=== PATIENT | female | born 1960 | race Caucasian/White ===

== ENCOUNTER 2019-05-20 12:44 | Observation (INO) | payer OTHER ==
[~2019-05-20] VITALS: Ht 154.9 cm; Wt 80.7 kg
[2019-05-20 12:44] VITALS: BP 144/77
--- NOTE | 2019-05-20 12:44 | NUR ---
Pt biba and placed in bed 1.
--- NOTE | 2019-05-20 13:02 | NUR ---
58 Y/O F BIBA FROM [facility] [employer]. PT STATES SHE BEGAN TO FEEL FAINT AND FELL TO THE GROUND. PT DENIES PREVIOUS HX OF SEIZURES/FAINTING. PT STATES SHE HAS A MILD HEADACHE 3/10 PAIN. PT POSITIONED FOR COMFORT, IV RUNNING AT 1000 ML NS, IV 20 G LT HAND. ALLERGIES: ASPIRIN
[2019-05-20] MEDS ORDERED: NACL 0.9% 500 ML IV SCH (13:31)
[2019-05-20 14:28] LABS: BASOPHILS # (AUTO) 0.1 K/uL (0.00-0.22); BASOPHILS % (AUTO) 0.7 % (0.0-2.0); EOSINOPHILS # (AUTO) 0.2 K/uL (0-0.4); EOSINOPHILS % (AUTO) 2.7 % (0.0-4.0); HEMATOCRIT 41.6 % (36-48); HEMOGLOBIN 13.7 g/dL (12.0-16.0); LYMPHOCYTES # (AUTO) 1.8 K/uL (2.5-16.5); LYMPHOCYTES % (AUTO) 23.3 % (20.5-51.1); MEAN CORPUSCULAR HEMOGLOBIN 29 pg (27-31); MEAN CORPUSCULAR HGB CONC 33 g/dL (33-37); MEAN CORPUSCULAR VOLUME 89.4 fL (80-94); MONOCYTES # (AUTO) 0.6 K/uL (0.8-1.0); MONOCYTES % (AUTO) 7.5 % (1.7-9.3); NEUTROPHILS % (AUTO) 65.8 % (42.2-75.2); PLATELET COUNT (AUTO) 209 K/uL (140-450); RED BLOOD CELL COUNT(AUTO) 4.66 MIL/uL (4.20-5.40); RED CELL DISTRIBUTION WIDTH 13.8 % (11.6-13.7); WHITE BLOOD COUNT (AUTO) 7.7 K/uL (4.8-10.8)
--- NOTE | 2019-05-20 14:28 | NUR ---
URINE COLLECTED FROM PT, GIVEN TO LAB.
[2019-05-20 14:50] LABS: APPEARANCE,URINE CLEAR (CLEAR); BILIRUBIN,URINE NEGATIVE (NEGATIVE); BLOOD, URINE NEGATIVE (NEGATIVE); COLOR,URINE YELLOW (YELLOW); LEUKOCYTE ESTERASE ,URINE NEGATIVE (NEGATIVE); NITRITE, URINE NEGATIVE (NEGATIVE); PH,URINE 5.5 (5.0-9.0); UGLUCOSE NEGATIVE (NEGATIVE)
[2019-05-20 15:00] LABS: ANION GAP 13.4 (8-16); CARBON DIOXIDE 26.5 mmol/L (21-32); POTASSIUM 3.9 mmol/L (3.5-5.1); PROTHROMBIN TIME 9.8 secs (10.8-13.4); TOTAL BILIRUBIN 0.4 mg/dL (0.0-1.0)
[2019-05-20] MEDS ORDERED: CLOPIDOGREL 75 MG TAB PO ONE (15:20)
[2019-05-20 16:07] LABS: ALBUMIN 3.7 g/dL (3.4-5.0); CREATININE 0.8 mg/dL (0.6-1.3)
--- NOTE | 2019-05-20 16:07 | NUR ---
PT AMBULATED TO RESTROOM WITHOUT DIFFICULTY.
[2019-05-20] MEDS ORDERED: ACETAMINOPHEN 325 MG TAB PO PRN (17:00)
[2019-05-20] MEDS ORDERED: NITROGLYCERIN 0.4 MG TAB SL PRN (17:00)
[2019-05-20] MEDS ORDERED: MORPHINE SULFATE 2 MG/ML SYR IVP PRN (17:00)
[2019-05-20] MEDS ORDERED: ZOLPIDEM 5 MG TAB PO PRN (17:00)
--- NOTE | 2019-05-20 18:00 | NUR ---
Patient will be admitted to care of DR PERKINS . Admited to TELE. Will go to room 121A. Belongings list completed. Report to BESS GUERIN.
--- NOTE | 2019-05-20 18:15 | NUR ---
RECEIVED REPORT FROM ED NURSE, PT IS AWAKE AND ALERT, AMBULATORY AND ABLE TO MAKE NEEDS KNOWN. PT IS ON ROOM AIR, SKIN INTACT. VS UPON ADMISSION: BP 130/82, HR 70, RR 21, TEMP 98.1, O2 97%.
--- NOTE | 2019-05-20 19:15 | NUR ---
ENDORSED PT TO PRESALES ENGINEER NURSE IN STABLE CONDITION.
--- NOTE | 2019-05-20 19:16 | NUR ---
RECEIVED PT FROM DAY SHIFT NURSETRUONG. NO SOB OR ANY RESPIRATORY DISTRESS NOTED. SKIN INTACT, WARM AND DRY TO TOUCH. IV SITE ON RFA 20G, PATENT, INTACT, AND ASYMPTOMATIC. ALL SAFETY MEASUREMENT ARE MET. BOARD UPDATED, BED IN LOW POSITION, CALL LIGHT WITHIN REACH.
[2019-05-20 20:00] VITALS: BP 122/70
--- NOTE | 2019-05-20 20:01 | NUR ---
VS CHECKED, WITHIN NORMAL RANGE. WILL CONTINUE TO MONITOR.
[2019-05-20] MEDS: NACL 0.9% 1,000 ML IV SCH (21:00)
--- NOTE | 2019-05-20 22:00 | NUR ---
PT LAYING ON BED. NO ACUTE DISTRESS NOTED. BED IN LOW POSITION, CALL LIGHT WITHIN REACH .
[2019-05-20 22:14] LABS: BARBITURATE, URINE NEGATIVE ng/ml (NEG <=200); BENZODIAZEPINE, URINE NEGATIVE ng/mL (NEG <=200); CANNABINOID, URINE NEGATIVE ng/mL (NEG <=50); COCAINE, URINE NEGATIVE ng/mL (NEG <=300); OPIATE, URINE NEGATIVE ng/mL (NEG <=2000); PHENCYCLIDINE SCREEN,URINE NEGATIVE ng/mL (NEG <=25)
[2019-05-21] VITALS: BP 118/64
--- NOTE | 2019-05-21 00:05 | NUR ---
VS CHECKED, WITHIN PT'S BASELINE. WILL CONTINUE TO MONITOR.
--- NOTE | 2019-05-21 02:25 | NUR ---
PT SLEEPING IN BED. NO ACUTE DISTRESS NOTED.
[2019-05-21 04:00] VITALS: BP 120/70
--- NOTE | 2019-05-21 04:05 | NUR ---
VS CHECKED, WITHIN PT'S BASELINE. BED IN LOW POSITION, CALL LIGHT WITHIN REACH.
--- NOTE | 2019-05-21 05:45 | NUR ---
PT SLEEPING COMFORTABLY IN BED. NO ACUTE DISTRESS NOTED. CALL LIGHT WITHIN REACH.
[2019-05-21 06:39] LABS: BASOPHILS # (AUTO) 0.1 K/uL (0.00-0.22); BASOPHILS % (AUTO) 0.9 % (0.0-2.0); EOSINOPHILS # (AUTO) 0.3 K/uL (0-0.4); EOSINOPHILS % (AUTO) 4.9 % (0.0-4.0); HEMATOCRIT 39.3 % (36-48); LYMPHOCYTES # (AUTO) 2.5 K/uL (2.5-16.5); MEAN CORPUSCULAR HEMOGLOBIN 30 pg (27-31); MEAN CORPUSCULAR HGB CONC 33 g/dL (33-37); MEAN CORPUSCULAR VOLUME 89.6 fL (80-94); MONOCYTES # (AUTO) 0.6 K/uL (0.8-1.0); MONOCYTES % (AUTO) 9.3 % (1.7-9.3); NEUTROPHILS # (AUTO) 2.9 K/uL (1.8-7.7); NEUTROPHILS % (AUTO) 45.9 % (42.2-75.2); PLATELET COUNT (AUTO) 201 K/uL (140-450); RED BLOOD CELL COUNT(AUTO) 4.39 MIL/uL (4.20-5.40); RED CELL DISTRIBUTION WIDTH 13.7 % (11.6-13.7); WHITE BLOOD COUNT (AUTO) 6.4 K/uL (4.8-10.8)
--- NOTE | 2019-05-21 07:15 | NUR ---
RECEIVED REPORT FROM EVENT MANAGER. PATIENT IN STABLE CONDITION, RESTING IN BED. RESPIRATIONS EVEN, UNLABORED. IV INTACT AND PATENT. SAFETY MEASURES IN PLACE. BED IN LOWEST POSITION CALL LIGHT AT BEDSIDE. WILL CONTINUE TO MONITOR.
[2019-05-21 07:27] LABS: ANION GAP 11.4 (8-16); CARBON DIOXIDE 26.5 mmol/L (21-32); CREATININE 0.8 mg/dL (0.6-1.3); POTASSIUM 3.9 mmol/L (3.5-5.1)
[2019-05-21 08:00] VITALS: BP 127/80
--- NOTE | 2019-05-21 08:47 | NUR ---
PATIENT HAS BEEN SCREENED AND CATEGORIZED MODERATE NUTRITION RISK. PATIENT WILL BE SEEN WITHIN 3-5 DAYS OF ADMISSION. 05/23/19 05/25/[address]
[2019-05-21] MEDS: NACL 0.9% 1,000 ML IV SCH (09:59)
--- NOTE | 2019-05-21 10:50 | NUR ---
PATIENT RESTING IN BED COMFORTABLY. CONTINUES IN STABLE CONDITION. NO C/O PAIN. NO EPISODES OF SYNCOPE. WILL CONTINUE TO MONITOR.
[2019-05-21 12:00] VITALS: BP 122/63
--- NOTE | 2019-05-21 12:47 | NUR ---
PATIENT RESTING IN BED, COMFORTABLY. REMAINS IN STABLE CONDITION. IV INTACT WITH NO S/SX INFILTRATION. NO C/O PAIN. NO S/SX ACUTE DISTRESS. ALL NEEDS ATTENDED TO. PATIENT CLEAN/DRY. CALL LIGHT WITHIN REACH. WILL CONTINUE TO MONITOR.
--- NOTE | 2019-05-21 14:48 | NUR ---
SW Assessment/Discharge Plan Name: [facility] Home Relationship: Pre-Admission Living Arrangements: Lives with Other Other: [facility] Prior ADL Independent Current Home Health Name/Tel: N/A Current DME/02 Name/Tel: N/A Current Hospice Name/Tel: N/A Current Dialysis Name/Tel: N/A Healthcare Decision Maker: Patient Advance Directive No Information Taught: Advance Directive Community Resources Person Taught: Patient Teaching Tools: Community Resources Computer Generated Print Verbal Factors Affecting Learning: None Participation Level: Active Evaluation: Gestures Understanding Verbalizes Understanding Educator: YOBANI Hamilton Discipline: Case Mgt/Social Svcs Tentative Discharge Plan Summary: Patient is a 58 year old female, admitted for syncope. I met with patient at bedside. Patient alert and oriented x4. Patient lives at home with her Sd and plans to return home upon discharge. Patient's pcp is ([place], [place]). She does not have any difficulty filling her prescriptions. She drives to pcp's office. She stated she has had anxiety for approximately 1 year. She is not taking medication for anxiety or following up with a therapist/psychologist/psychiatrist. I encouraged her to speak with her pcp regarding her anxiety and provided her with a list of counseling/mental health services. She stated she does not have any questions/concerns at this time. Book Jacket Cover Machine Operator and/or Geoscience Professor will follow up as needed. Signature: YOBANI Hamilton Date: May 21, 2019
--- NOTE | 2019-05-21 15:44 | NUR ---
DC PLANNIN YRS OLD FEMALE PATIENT WAS ADMITTED FROM HOME WITH A DX OF SYNCOPE. PT DENIES ANY MEDICAL HX. ADMINISTERED PLAVIX 75 MG DAILY. CARDIOLOGY CONSULT.DC PLAN WHEN STABLE.CM TO FOLLOW
[2019-05-21 16:00] VITALS: BP 122/75
--- NOTE | 2019-05-21 16:22 | NUR ---
CORAZON DIAZ FROM [facility] [phone] CALLING FOR PATIENT UPDATE. ALL QUESTIONS ANSWERED AT THIS TIME.
--- NOTE | 2019-05-21 19:05 | NUR ---
GAVE DISCHARGE INSTRUCTIONS TO PATIENT AT THIS TIME. PT VERBALIZED UNDERSTANDING OF INSTRUCTIONS. REMOVED IV, LUMEN INTACT. REMOVED ID BAND. WHEELED PT TO LOBBY WHERE FAMILY WAITING WITH VEHICLE. PT IN STABLE CONDITION.
[2019-05-22] MEDS ORDERED: CLOPIDOGREL 75 MG TAB PO SCH (09:00)
== END 2019-05-21 19:15 | disposition home or self-care (01) ==
LOC: MED 12:44 → INTOOBSV 16:56 → MTU 16:56
PROVIDERS: ADMIT Internal Medicine; ATTEND Internal Medicine
DX: R55 Syncope and collapse (principal); R79.89 Other specified abnormal findings of blood chemistry; Z88.6 Allergy status to analgesic agent; Z79.899 Other long term (current) drug therapy
CPT/HCPCS: 36415; 70450; 71045; 80048; 80053; 80305; 81003; 83605; 84484; 85025; 85610; 85730; 87040; 87081; 87086; 93005; 93307; 96360; 96361; 99285; G0378; J7030; Q0092

== ENCOUNTER 2019-12-03 22:29 | Emergency (ER) | payer OTHER ==
[~2019-12-03] VITALS: Ht 157.5 cm; Wt 77.1 kg
[2019-12-03 22:37] VITALS: BP 125/88
--- NOTE | 2019-12-03 23:15 | NUR ---
PT IS AAOX4, CALM AND HOOK ON MONITOR. PT NO C/O PAIN AT THIME 0/0. PT IS CALM, GOWNED, AND PT BEDDED TO R.11. PT CARE TO [facility]AP[facility].
--- NOTE | 2019-12-03 23:30 | NUR ---
PT PLACED IN GOWN AND PLACED ON BEDSIDE MONITOR
--- NOTE | 2019-12-03 23:40 | NUR ---
PT RESTING IN BED IN POSITION OF COMFORT, BED LOW AND LOCKED, 2 SIDERAILS UP, VSS, WILL CONTINUE TO MONITOR
--- NOTE | 2019-12-04 | NUR ---
EKG PERFORMED AT BEDSIDE
[2019-12-04 00:14] LABS: BASOPHILS % (AUTO) 0.5 % (0.0-2.0); EOSINOPHILS # (AUTO) 0.1 K/uL (0-0.4); HEMATOCRIT 38.6 % (36-48); HEMOGLOBIN 13.2 g/dL (12.0-16.0); LYMPHOCYTES # (AUTO) 1.4 K/uL (2.5-16.5); LYMPHOCYTES % (AUTO) 13.7 % (20.5-51.1); MEAN CORPUSCULAR HEMOGLOBIN 30 pg (27-31); MEAN CORPUSCULAR HGB CONC 34 g/dL (33-37); MONOCYTES # (AUTO) 0.7 K/uL (0.8-1.0); NEUTROPHILS # (AUTO) 8.2 K/uL (1.8-7.7); NEUTROPHILS % (AUTO) 77.8 % (42.2-75.2); PLATELET COUNT (AUTO) 231 K/uL (140-450); RED BLOOD CELL COUNT(AUTO) 4.39 MIL/uL (4.20-5.40); RED CELL DISTRIBUTION WIDTH 12.7 % (11.6-13.7); WHITE BLOOD COUNT (AUTO) 10.6 K/uL (4.8-10.8)
[2019-12-04 00:26] LABS: ALBUMIN 3.6 g/dL (3.4-5.0); ANION GAP 12.4 (8-16); CREATININE 0.8 mg/dL (0.6-1.3); POTASSIUM 3.4 mmol/L (3.5-5.1); TOTAL BILIRUBIN 0.7 mg/dL (0.0-1.0)
--- NOTE | 2019-12-04 00:45 | NUR ---
PT RESTING IN BED IN POSITION OF COMFORT, BED LOW AND LOCKED, 2 SIDERAILS UP, VSS, WILL CONTINUE TO MONITOR
--- NOTE | 2019-12-04 01:40 | NUR ---
PT RESTING IN BED IN POSITION OF COMFORT, BED LOW AND LOCKED, 2 SIDERAILS UP, VSS, WILL CONTINUE TO MONITOR
--- NOTE | 2019-12-04 02:40 | NUR ---
PT RESTING IN BED IN POSITION OF COMFORT, BED LOW AND LOCKED, 2 SIDERAILS UP, VSS, WILL CONTINUE TO MONITOR
[2019-12-04 02:53] VITALS: BP 123/73
--- NOTE | 2019-12-04 02:53 | NUR ---
Patient discharged with v/s stable. Written and verbal after care instructions given and explained. Patient alert, oriented and verbalized understanding of instructions. Ambulatory with steady gait. All questions addressed prior to discharge. ID band removed. Patient advised to follow up with PMD. Rx of AZITHROMYCIN/AMOXICILLIN given. Patient educated on indication of medication including possible reaction and side effects. Opportunity to ask questions provided and answered.
--- NOTE | 2019-12-04 18:31 | NUR ---
REVIEWD--AGREED PROPER TREATMENT PROVIDED
== END 2019-12-04 02:53 | disposition home or self-care (01) ==
LOC: MED 22:29
DX: J18.9 Pneumonia, unspecified organism (principal); E78.5 Hyperlipidemia, unspecified; I10 Essential (primary) hypertension; Z88.6 Allergy status to analgesic agent
CPT/HCPCS: 36415; 71045; 80053; 84484; 85025; 93005; 99285; Q0092; 99283

== ENCOUNTER 2022-02-18 11:24 | Emergency (ER) | payer OTHER ==
[~2022-02-18] VITALS: Ht 154.9 cm; Wt 84.8 kg
[2022-02-18 11:31] VITALS: BP 137/96
--- NOTE | 2022-02-18 11:51 | NUR ---
AMBULATED TO BED 2
[2022-02-18] MEDS ORDERED: NACL 0.9% 1,000 ML IV ONE (12:20)
[2022-02-18] MEDS ORDERED: diphenhydrAMINE 50 MG/ML VIAL IVP ONE (12:20)
[2022-02-18] MEDS ORDERED: ONDANSETRON 4 MG/2 ML VIAL IVP ONE (12:20)
[2022-02-18 12:26] LABS: BASOPHILS # (AUTO) 0.1 K/uL (0.00-0.22); BASOPHILS % (AUTO) 1.1 % (0.0-2.0); EOSINOPHILS # (AUTO) 0.5 K/uL (0-0.4); EOSINOPHILS % (AUTO) 5.5 % (0.0-4.0); HEMATOCRIT 40.4 % (36-48); HEMOGLOBIN 13.7 g/dL (12.0-16.0); LYMPHOCYTES # (AUTO) 2.7 K/uL (2.5-16.5); LYMPHOCYTES % (AUTO) 29.4 % (20.5-51.1); MEAN CORPUSCULAR HEMOGLOBIN 30 pg (27-31); MEAN CORPUSCULAR HGB CONC 34 g/dL (33-37); MEAN CORPUSCULAR VOLUME 87.4 fL (80-94); MONOCYTES # (AUTO) 0.8 K/uL (0.8-1.0); MONOCYTES % (AUTO) 8.4 % (1.7-9.3); NEUTROPHILS # (AUTO) 5.2 K/uL (1.8-7.7); NEUTROPHILS % (AUTO) 55.6 % (42.2-75.2); PLATELET COUNT (AUTO) 286 K/uL (140-450); RED BLOOD CELL COUNT(AUTO) 4.62 MIL/uL (4.20-5.40); RED CELL DISTRIBUTION WIDTH 13.9 % (11.6-13.7); WHITE BLOOD COUNT (AUTO) 9.3 K/uL (4.8-10.8)
[2022-02-18] MEDS ORDERED: IBUPROFEN 800 MG TAB PO ONE (12:30)
[2022-02-18] MEDS ORDERED: ALBUTEROL 0.083% 2.5 MG/3 ML NEBU INH ONE (12:30)
[2022-02-18 12:53] LABS: ALBUMIN 3.7 g/dL (3.4-5.0); ANION GAP 11.4 (8-16); ASPARTATE AMINOTRANSFERASE 24 U/L (15-37); CARBON DIOXIDE 25.6 mmol/L (21-32); CHLORIDE 107 mmol/L (98-107); CREATININE 0.8 mg/dL (0.6-1.3); GFR ARICAN-AMERICAN 94 mL/min (>90); GLUCOSE 100 mg/dL (74-106); SODIUM SERUM 140 mmol/L (136-145); TOTAL BILIRUBIN 0.3 mg/dL (0.0-1.0); UREA NITROGEN, BLOOD 14 mg/dL (7-18)
--- NOTE | 2022-02-18 12:56 | NUR ---
PT C/O COUGH HEADACHE, AND CHEST PAIN X2 WEEKS INTERMITTENTLY.
--- NOTE | 2022-02-18 13:00 | NUR ---
RT CALLED TO ER FOR PT ASSESSMENT AND BREATHING TX, PT WAS FOUND RESTING IN BED IN NO RESPIRATORY DISTRESS. PT IS SATING WELL AT 99% ON ROOM AIR, TX GIVEN AND IMPROVED AERATION WITH SLIGHT WHEEZE HEARD S/P TX, STILL SATING 99% ON ROOM AIR. PT IS RESTING IN BED COMFORTABLY.
[2022-02-18] MEDS ORDERED: ROB PO (13:29)
[2022-02-18] MEDS ORDERED: IBUP-2213 PO (13:29)
[2022-02-18] MEDS ORDERED: INHA1SPA24 MC (13:29)
[2022-02-18] MEDS ORDERED: ALBU0.0912 IH (13:29)
[2022-02-18 13:56] VITALS: BP 122/68
--- NOTE | 2022-02-18 13:56 | NUR ---
Patient discharged with v/s stable. Written and verbal after care instructions given and explained. Patient alert, oriented and verbalized understanding of instructions. Ambulatory with steady gait. All questions addressed prior to discharge. ID band removed. Patient advised to follow up with PMD. Rx of MOTRIN,ROBITUSSIN, INHALER given. Patient educated on indication of medication including possible reaction and side effects. Opportunity to ask questions provided and answered.
== END 2022-02-18 13:56 | disposition home or self-care (01) ==
LOC: MED 11:24
DX: R07.9 Chest pain, unspecified (principal); J40 Bronchitis, not specified as acute or chronic; I10 Essential (primary) hypertension; E78.5 Hyperlipidemia, unspecified; Z79.899 Other long term (current) drug therapy; Z79.1 Long term (current) use of non-steroidal anti-inflammatories (NSAID); Z88.6 Allergy status to analgesic agent
CPT/HCPCS: 36415; 71045; 80053; 84484; 85025; 93005; 94640; 99285; J7613

== ENCOUNTER 2022-06-07 07:21 | Emergency (ER) | payer OTHER ==
[~2022-06-07] VITALS: Ht 154.9 cm; Wt 84.4 kg
[~2022-06-07 07:21] MED LIST: ALBU0.0912 IH; IBUP-2213 PO; INHA1SPA24 MC; ROB PO
[2022-06-07 07:24] VITALS: BP 123/75
--- NOTE | 2022-06-07 07:33 | NUR ---
61 y/o female, a&ox4, [place] speaking, ambulates with steady gait. c/o epigastric pain/burning that started yesterday after eating. pt states she ate frijoles, cheese, tortilla. last meal 1829, last bm yesterday. states she has also been having constipation for 2 months. /10 pain at this time. pmh: denies allergy: aspirin med: denies
--- NOTE | 2022-06-07 08:30 | NUR ---
pt ambulated to bed 09
--- NOTE | 2022-06-07 08:30 | NUR ---
PT AMBULATED TO BED 9
[2022-06-07 09:12] LABS: BASOPHILS # (AUTO) 0.1 K/uL (0.00-0.22); BASOPHILS % (AUTO) 0.6 % (0.0-2.0); EOSINOPHILS # (AUTO) 0.3 K/uL (0-0.4); EOSINOPHILS % (AUTO) 3.3 % (0.0-4.0); HEMOGLOBIN 13.2 g/dL (12.0-16.0); LYMPHOCYTES # (AUTO) 1.9 K/uL (2.5-16.5); LYMPHOCYTES % (AUTO) 18.8 % (20.5-51.1); MEAN CORPUSCULAR HEMOGLOBIN 29 pg (27-31); MEAN CORPUSCULAR HGB CONC 33 g/dL (33-37); MEAN CORPUSCULAR VOLUME 87.4 fL (80-94); MONOCYTES # (AUTO) 0.7 K/uL (0.8-1.0); MONOCYTES % (AUTO) 7.2 % (1.7-9.3); NEUTROPHILS # (AUTO) 6.9 K/uL (1.8-7.7); NEUTROPHILS % (AUTO) 70.1 % (42.2-75.2); PLATELET COUNT (AUTO) 270 K/uL (140-450); RED BLOOD CELL COUNT(AUTO) 4.58 MIL/uL (4.20-5.40); RED CELL DISTRIBUTION WIDTH 13.8 % (11.6-13.7); WHITE BLOOD COUNT (AUTO) 9.9 K/uL (4.8-10.8)
[2022-06-07 09:29] LABS: ALBUMIN 3.4 g/dL (3.4-5.0); ASPARTATE AMINOTRANSFERASE 17 U/L (15-37); CREATININE 0.7 mg/dL (0.6-1.3); GFR ARICAN-AMERICAN 109 mL/min (>90); GLUCOSE 106 mg/dL (74-106); LIPASE 108 U/L (73-393); UREA NITROGEN, BLOOD 21 mg/dL (7-18)
[2022-06-07 09:36] LABS: CARBON DIOXIDE 27.2 mmol/L (21-32); CHLORIDE 107 mmol/L (98-107); POTASSIUM 4.2 mmol/L (3.5-5.1); SODIUM SERUM 142 mmol/L (136-145)
[2022-06-07 09:53] LABS: TOTAL BILIRUBIN 0.4 mg/dL (0.0-1.0)
[2022-06-07] MEDS ORDERED: DICYCLOMINE HCL LIQUID 20 MG, ALUMINUM HYD/MAG/SIMETHICONE 30 ML, LIDOCAINE VISCOUS 2% ... PO ONE ×3 (10:15)
--- NOTE | 2022-06-07 10:33 | NUR ---
IV INSERTED TO LEFT AC #[id number]
[2022-06-07] MEDS ORDERED: ALUMINUM HYD/MAG/SIMETHICONE 30 ML UDC ONE (11:19)
[2022-06-07] MEDS ORDERED: PANT20EC18 PO (11:30)
--- NOTE | 2022-06-07 12:22 | NUR ---
Patient discharged with v/s stable. Written and verbal after care instructions given and explained. Patient verbalized understanding. Ambulatory with steady gait. All questions addressed prior to discharge. Advised to follow up with PMD.
== END 2022-06-07 12:22 | disposition home or self-care (01) ==
LOC: MED 07:21
DX: R10.13 Epigastric pain (principal); I10 Essential (primary) hypertension; Z79.82 Long term (current) use of aspirin; Z79.899 Other long term (current) drug therapy
CPT/HCPCS: 36415; 71045; 74177; 80053; 83690; 84484; 85025; 93005; 99285; Q0092; Q9967

== ENCOUNTER 2023-03-19 17:49 | Emergency (ER) | payer OTHER ==
[~2023-03-19] VITALS: Ht 154.9 cm; Wt 83.9 kg
[~2023-03-19 17:49] MED LIST changes: +PANT20EC18 PO
[2023-03-19 17:54] VITALS: BP 159/96; PULSE 71; RESP 16; TEMP 97; O2SAT 100
[2023-03-19 18:15] VITALS: TEMP 97
[2023-03-19] MEDS ORDERED: NACL 0.9% 1,000 ML IV ONE (18:35)
[2023-03-19] MEDS ORDERED: KETOROLAC 30 MG/ML VIAL IVP ONE (18:35)
[2023-03-19] MEDS ORDERED: ONDANSETRON 4 MG/2 ML VIAL IVP ONE (18:35)
[2023-03-19 18:45] LABS: BASOPHILS # (AUTO) 0.1 K/uL (0.00-0.22); BASOPHILS % (AUTO) 0.7 % (0.0-2.0); EOSINOPHILS # (AUTO) 0.3 K/uL (0-0.4); EOSINOPHILS % (AUTO) 2.3 % (0.0-4.0); HEMATOCRIT 43.1 % (36-48); HEMOGLOBIN 14.5 g/dL (12.0-16.0); LYMPHOCYTES # (AUTO) 3.6 K/uL (2.5-16.5); MEAN CORPUSCULAR HEMOGLOBIN 29 pg (27-31); MEAN CORPUSCULAR HGB CONC 34 g/dL (33-37); MEAN CORPUSCULAR VOLUME 86.6 fL (80-94); MONOCYTES # (AUTO) 0.9 K/uL (0.8-1.0); MONOCYTES % (AUTO) 6.6 % (1.7-9.3); NEUTROPHILS # (AUTO) 8.9 K/uL (1.8-7.7); NEUTROPHILS % (AUTO) 64.4 % (42.2-75.2); PLATELET COUNT (AUTO) 342 K/uL (140-450); RED BLOOD CELL COUNT(AUTO) 4.97 MIL/uL (4.20-5.40); RED CELL DISTRIBUTION WIDTH 13.8 % (11.6-13.7); WHITE BLOOD COUNT (AUTO) 13.8 K/uL (4.8-10.8)
[2023-03-19 18:51] LABS: APPEARANCE,URINE CLEAR (CLEAR); BILIRUBIN,URINE NEGATIVE (NEGATIVE); BLOOD, URINE NEGATIVE (NEGATIVE); COLOR,URINE YELLOW (YELLOW); LEUKOCYTE ESTERASE ,URINE TRACE (NEGATIVE); NITRITE, URINE NEGATIVE (NEGATIVE); PH,URINE 6.5 (5.0-9.0); PROTEIN,URINE NEGATIVE (NEGATIVE); UGLUCOSE NEGATIVE (NEGATIVE); UROBILINOGEN,URINE 0.2 EU/dL (0.2 - 1)
[2023-03-19 18:53] LABS: ANION GAP 18.1 (8-16); CALCIUM 8.6 mg/dL (8.5-10.1); CARBON DIOXIDE 25.2 mmol/L (21-32); CREATININE 1.1 mg/dL (0.6-1.3); POTASSIUM 3.3 mmol/L (3.5-5.1); TOTAL BILIRUBIN 0.3 mg/dL (0.0-1.0); TOTAL PROTEIN, SERUM 7.7 g/dL (6.4-8.2)
[2023-03-19 18:58] LABS: BACTERIA,URINE 1+ /HPF (None Seen); RBC,URINE 0-5 /HPF (0-5)
[2023-03-19] MEDS ORDERED: metroNIDAZOLE 500 MG/NS PREMIX 100 ML IV ONE (21:15)
[2023-03-19] MEDS ORDERED: cefTRIAXone 1,000 MG VIAL ONE ×2 (21:22→22:36)
[2023-03-19 22:39] LABS: LACTIC ACID 1.6 mmol/L (0.4-2.0)
[2023-03-19 22:57] VITALS: BP 114/55; PULSE 67; RESP 10; O2SAT 98
== END 2023-03-20 01:21 | disposition short-term general hospital (02) ==
LOC: MED 17:49
DX: K80.20 Calculus of gallbladder without cholecystitis without obstruction (principal); N39.0 Urinary tract infection, site not specified; E87.6 Hypokalemia; R73.9 Hyperglycemia, unspecified; I10 Essential (primary) hypertension; Z79.82 Long term (current) use of aspirin; Z79.899 Other long term (current) drug therapy
CPT/HCPCS: 36415; 74177; 76705; 80053; 81001; 83605; 83690; 85025; 87040; 87086; 96361; 96365; 96367; 96375; 99285; J0696; J1885; J2405; J3490; J7030; Q0092; Q9967